=== PATIENT | female | born 1985 | race Caucasian/White ===

== ENCOUNTER → 2023-11-24 | Outpatient (CLI) | payer BC ==
--- NOTE | 2023-11-27 14:22 | MM ---
Reason for Exam: Screening (asymptomatic). Last screening mammogram was performed less than 1 month ago. Patient History: Menarche at age 13. Premenopausal. 10/02/2001, Excisional Biopsy on the Left side. 08/20/2002, Benign Excisional Biopsy on the left side. Maternal grandmother had breast cancer, age 70. Risk Values: Sharyn 5 year model risk: 0.9%. NCI Lifetime model risk: 12.0%. Prior Study Comparison: 12/17/2019 Bilateral Screening Mammogram, [facility]. Tissue Density: The breast tissue is heterogeneously dense. This may lower the sensitivity of mammography. Findings: Analyzed By CAD. There is no suspicious group of microcalcifications or new suspicious mass. Overall Assessment: Negative, BI-RAD 1 Management: Screening Mammogram of both breasts in [address] [facility] will attempt to contact patient to return for supplemental views and ultrasound if indicated. Patient should continue monthly self-breast exams. A clinical breast exam by your physician is recommended on an annual basis. This exam should not preclude additional follow-up of suspicious palpable abnormalities. Note on Sharyn scores and lifetime risk: 1. A Sharyn score greater than 3% is considered moderate risk. If this is the case, consider specialist referral to assess eligibility for a risk reducing agent. 2. If overall lifetime risk for the development of breast cancer is 20% or higher, the patient may qualify for future screening with alternating mammogram and breast MRI. Electronically signed and approved by: Bolivar Dolan DO
== END | disposition home or self-care (01) ==
LOC: RADMAMWWP 08:23 → MERGE 08:30
PROVIDERS: ATTEND Internal Medicine Geriatric Medicine
DX: Z12.31 Encounter for screening mammogram for malignant neoplasm of breast (principal); Z80.3 Family history of malignant neoplasm of breast
CPT/HCPCS: 77063; 77067

== ENCOUNTER → 2025-04-16 | Outpatient (CLI) | payer BC ==
--- NOTE | 2025-04-16 10:01 | MM ---
Reason for Exam: Screening (asymptomatic). Last mammogram was performed 1 year(s) and 5 month(s) ago. Patient History: Menarche at age 13. Premenopausal. 10/02/2001, Excisional Biopsy on the Left side. 08/20/2002, Benign Excisional Biopsy on the left side. Maternal grandmother had breast cancer, age 70. Last menstrual period: 04/14/2025 Risk Values: Sharyn 5 year model risk: 1.0%. NCI Lifetime model risk: 11.9%. Prior Study Comparison: 12/17/2019 Bilateral Screening Mammogram, [facility]. 11/24/2023 Bilateral MG 3D screening mammo w/cad, [facility]. Tissue Density: The breasts are heterogeneously dense, which may obscure small masses. Findings: Analyzed By CAD. Postoperative changes of left-sided lumpectomy stable. No new masses or suspicious calcifications present. Overall Assessment: Benign, BI-RAD 2 Management: Screening Mammogram of both breasts in 1 year. . Patient should continue monthly self-breast exams. A clinical breast exam by your physician is recommended on an annual basis. This exam should not preclude additional follow-up of suspicious palpable abnormalities. Note on Sharyn scores and lifetime risk: 1. A Sharyn score greater than 3% is considered moderate risk. If this is the case, consider specialist referral to assess eligibility for a risk reducing agent. 2. If overall lifetime risk for the development of breast cancer is 20% or higher, the patient may qualify for future screening with alternating mammogram and breast MRI. [facility], , 04/16/2025 9:58 AM. Electronically signed and approved by: Harrison Loya M.D. [facility]
== END | disposition home or self-care (01) ==
LOC: RADMAMWWP 08:56
PROVIDERS: ATTEND Family Medicine
DX: Z12.31 Encounter for screening mammogram for malignant neoplasm of breast (principal); R92.333 Mammographic heterogeneous density, bilateral breasts; Z80.3 Family history of malignant neoplasm of breast; Z98.890 Other specified postprocedural states
CPT/HCPCS: 77063; 77067